=== PATIENT | female | born 1980 | race Two or more races ===

== ENCOUNTER → 2020-01-11 14:45 | Outpatient (CLI) | payer OTHER ==
[~2020-01-11 14:45] MED LIST: PRENATAL1 TAB
== END | disposition home or self-care (01) ==
LOC: LAB 14:45
PROVIDERS: ATTEND Orthopaedic Surgery
DX: U07.1 COVID-19 (principal); R05 Cough; R06.2 Wheezing

== ENCOUNTER 2021-07-01 19:30 | Emergency (ER) | payer OTHER ==
[~2021-07-01] VITALS: Ht 162.6 cm; Wt 68.9 kg
[2021-07-01] MEDS ORDERED: NAPROXEN500 MG PO (21:47)
== END 2021-07-01 21:53 | disposition home or self-care (01) ==
LOC: ER 19:30
DX: R10.2 Pelvic and perineal pain (principal); R10.32 Left lower quadrant pain

== ENCOUNTER 2022-05-03 17:41 | Emergency (ER) | payer OTHER ==
[~2022-05-03] VITALS: Ht 162.6 cm; Wt 72.6 kg
[~2022-05-03 17:41] MED LIST changes: +NAPROXEN500 MG PO
== END 2022-05-03 22:55 | disposition home or self-care (01) ==
LOC: ER 17:41
DX: B34.9 Viral infection, unspecified (principal); Z20.822 Contact with and (suspected) exposure to COVID-19

== ENCOUNTER → 2022-06-01 | Emergency (ER) | payer OTHER ==
[~2022-06-01] VITALS: Ht 162.6 cm; Wt 70.3 kg
[~2022-06-01] MED LIST changes: +KETO10TA2 PO
== END | disposition home or self-care (01) ==
LOC: ER 15:07
DX: D25.9 Leiomyoma of uterus, unspecified (principal); N83.201 Unspecified ovarian cyst, right side

== ENCOUNTER 2022-11-24 10:41 | Outpatient (CLI) | payer OTHER | END 2022-11-24 10:52 | disposition home or self-care (01) | LOC: MRI 10:41 | PROVIDERS: ATTEND Obstetrics & Gynecology Obstetrics | DX: R10.2 Pelvic and perineal pain (principal) | CPT/HCPCS: 72197 ==

== ENCOUNTER 2023-02-08 17:44 | Emergency (ER) | payer OTHER ==
[~2023-02-08] VITALS: Ht 162.6 cm; Wt 72.6 kg
== END 2023-02-09 00:31 | disposition home or self-care (01) ==
LOC: ER 17:44
PROVIDERS: General Practice
DX: N20.0 Calculus of kidney (principal); R10.9 Unspecified abdominal pain

== ENCOUNTER 2023-07-24 17:37 | Emergency (ER) | payer OTHER ==
[~2023-07-24] VITALS: Ht 160 cm; Wt 68.0 kg
[2023-07-24] MEDS ORDERED: HYDROCODONE/CHLORPHEN P-STIREX 5 ML ML PO STA (19:17)
[2023-07-24 20:18] LABS: HEMATOCRIT 33.6 % (36.0-45.00); HEMOGLOBIN 10.7 g/dL (12.0-15.00); MEAN CORPUSCULAR HEMOGLOBIN 20.6 pg (27.00-32.0); MEAN CORPUSCULAR HGB CONC 31.8 g/dl (32.0-36.0); PLATELET COUNT 563 K/uL (150-450); RED BLOOD COUNT 5.19 M/uL (4.00-6.00); RED CELL DISTRIBUTION WIDTH 18.8 % (11.5-14.5)
[2023-07-24 20:19] LABS: MEAN CELL VOLUME 64.9 fL (80.00-100.00)
== END 2023-07-24 21:21 | disposition home or self-care (01) ==
LOC: ER 17:37
DX: J06.9 Acute upper respiratory infection, unspecified (principal); Z20.822 Contact with and (suspected) exposure to COVID-19

== ENCOUNTER 2024-05-14 08:19 | Outpatient (CLI) | payer OTHER | END 2024-05-14 08:25 | disposition home or self-care (01) | LOC: SONOGRAMA 08:19 | PROVIDERS: ATTEND Surgery | DX: R10.2 Pelvic and perineal pain (principal) ==

== ENCOUNTER 2024-10-04 15:18 | Emergency (ER) | payer OTHER ==
[~2024-10-04] VITALS: Ht 162.6 cm; Wt 70.3 kg
[2024-10-04] MEDS ORDERED: AZITHROMYCIN 500 MG TABLET PO ONE ×2 (16:45→16:52)
[2024-10-04] MEDS ORDERED: GUAIFENESIN/DEXTROMETHORPHAN 100MG/10ML BLIST.PACK PO ONE ×2 (16:45→16:52)
[2024-10-04] MEDS ORDERED: KETOROLAC TROMETHAMINE 60 MG VIAL IM ONE ×2 (16:45→16:52)
[2024-10-04] MEDS ORDERED: DEXAMETHASONE SODIUM PHOSPHATE 4 MG/ML VIAL IM ONE (16:45)
[2024-10-04] MEDS ORDERED: XOPENEX CO1.25 MG/0. IH (16:51)
[2024-10-04] MEDS ORDERED: TUSNEL LIQUID178 ML PO (16:51)
[2024-10-04] MEDS ORDERED: ZITHROMAX500 MG PO (16:51)
[2024-10-04] MEDS ORDERED: DEXAMETHASONE SODIUM PHOSPHATE 4 MG/ML VIAL ONE (16:52)
== END 2024-10-04 18:08 | disposition home or self-care (01) ==
LOC: ER 15:19
DX: J06.9 Acute upper respiratory infection, unspecified (principal)